=== PATIENT | male | born 1975 | race Caucasian/White ===

== ENCOUNTER 2019-01-23 08:31 | Inpatient (IN) | payer BC, MEDICAID ==
[~2019-01-23 08:31] MED LIST: Dexamethasone 4 MG/ML SDV ONE; Glycopyrrolate 0.2 MG/ML 5 ML MDV ONE; Ketamine 50 MG in Sodium Chloride 0.9% 49.5 ML IV SCH; Ketamine 500 MG/5 ML MDV IV SCH; Lactated Ringers 1,000 ML ONE; Lidocaine 0.4%/D5W 2 GM/500 ML BAG IV SCH; Lidocaine 2% 100 MG/5 ML Syringe IVPUSH SCH; Neostigmine Methylsulfate 1 MG/ML 5 ML Syringe ONE; Ondansetron 4 MG/2 ML SDV ONE; Propofol 200 MG/20 ML SDV ONE; Rocuronium 50 MG/5 ML Vial ONE; Ropivacaine 60 ML, Dexamethasone 8 MG, EPINEPHrine 0.4 MG, Sodium Chloride 0.9% 17.6 ML NERVRT SCH; Succinylcholine 200 MG/10 ML MDV ONE; cefOXitin 2 GM Vial ONE; fentaNYL 250 MCG/5 ML SDV ONE
[2019-01-23] MEDS ORDERED: Acetaminophen 500 MG Tab PO ONE (09:00)
[2019-01-23] MEDS ORDERED: Gabapentin 300 MG Cap PO ONE (09:00)
[2019-01-23] MEDS ORDERED: Scopolamine 1.5 MG Transdermal Patch TOP SCH (09:00)
[2019-01-23] MEDS ORDERED: cefOXitin 2 GM in Sodium Chloride 0.9% 50 ML IV ONE (09:00)
[2019-01-23] MEDS ORDERED: Dextrose 5%-Lactated Ringers 1,000 ML IV SCH ×2 (09:00→16:00)
[2019-01-23] MEDS ORDERED: Celecoxib 200 MG Cap PO ONE (09:00)
[2019-01-23 09:15] LABS: HEMOGLOBIN A1C 6.4 % (4.5-6.2)
[2019-01-23] MEDS ORDERED: Rocuronium 50 MG/5 ML Vial ONE ×2 (10:34→11:43)
[2019-01-23] MEDS ORDERED: fentaNYL 250 MCG/5 ML SDV ONE (11:00)
[2019-01-23] MEDS ORDERED: Sodium Chloride 0.9% 10 ML ONE (13:57)
[2019-01-23] MEDS ORDERED: fentaNYL 100 MCG/2 ML SDV ONE (14:03)
[2019-01-23] MEDS ORDERED: hydrOXYzine HCl 100 MG/2 ML SDV IM ONE (14:23)
[2019-01-23] MEDS ORDERED: fentaNYL 100 MCG/2 ML SDV IVPUSH ONE ×2 (14:41→14:58)
[2019-01-23] MEDS ORDERED: hydrOXYzine HCl 100 MG/2 ML SDV IM PRN (15:55)
[2019-01-23] MEDS ORDERED: Labetalol 20 MG/4 ML Syringe IVPUSH PRN (15:55)
[2019-01-23] MEDS ORDERED: diphenhydrAMINE 50 MG/ML SDV IVPUSH PRN (15:55)
[2019-01-23] MEDS ORDERED: Metoclopramide 10 MG/2 ML SDV IVPUSH PRN (15:55)
[2019-01-23] MEDS ORDERED: SCOPOLAMINE PATCH CHECK TOP SCH (15:55)
[2019-01-23] MEDS ORDERED: Ondansetron 4 MG/2 ML SDV IVPUSH PRN (15:55)
[2019-01-23] MEDS ORDERED: HYDROmorphone 1 MG/ML Syringe IV PRN (15:55)
[2019-01-23] MEDS ORDERED: Insulin Lispro 100 Unit/ML 3 ML KwikPen SUBCUT PRN (15:58)
[2019-01-23] MEDS ORDERED: 50% Dextrose in Water 50 ML Syringe IVPUSH PRN (15:58)
[2019-01-23] MEDS ORDERED: Glucagon,Human Recombinant 1 MG Vial IM PRN (15:58)
[2019-01-23] MEDS ORDERED: Lactated Ringers 1,000 ML IV SCH (16:00)
[2019-01-23] MEDS ORDERED: Pantoprazole 40 MG Vial IVPUSH SCH (17:00)
[2019-01-23] MEDS: cefOXitin 2 GM in Sodium Chloride 0.9% 50 ML IV SCH ×2 (17:43→23:00)
[2019-01-23] MEDS: Acetaminophen Soln 650 MG/20.3 ML UD Cup PO SCH ×2 (17:43→23:00)
[2019-01-23] MEDS ORDERED: Heparin Sodium 5,000 Units/ML Vial SUBCUT SCH (20:00)
[2019-01-23] MEDS: MVI, Adult with Vitamin K 10 ML, Thiamine 200 MG, Chromium/Copper/Mang/Selen/Zn 1 ML in... IV SCH ×4 (20:18)
[2019-01-23] MEDS: Gabapentin 250 MG/5 ML Solution ML 470 ML Bottle PO SCH (21:57)
[2019-01-23] MEDS: Metoprolol Succinate 25 MG Tab.ER PO SCH (21:57)
[2019-01-23] MEDS: HYDROmorphone 0.5 MG/0.5 ML Syringe IVPUSH PRN (23:17)
[2019-01-24] MEDS: Acetaminophen Soln 650 MG/20.3 ML UD Cup PO SCH ×4 (04:07→22:29)
[2019-01-24] MEDS: cefOXitin 2 GM in Sodium Chloride 0.9% 50 ML IV SCH ×4 (04:07→22:29)
[2019-01-24] MEDS ORDERED: Iohexol 647 MG/ML 50 ML SDV PO SCH (04:30)
--- NOTE | 2019-01-24 05:23 | CRLCR ---
HISTORY: David-en-Y gastric bypass. TECHNIQUE: Upright abdominal radiographs. Three images. Contrast material was administered. COMPARISON: No prior. FINDINGS: Postsurgical changes of gastric bypass. Contrast is seen extending from the gastric pouch into the proximal jejunum. No obstruction seen on these films. No contrast extravasation appreciated. Surgical drains are present. IMPRESSION: 1. Postsurgical changes of gastric bypass. 2. No obstruction or contrast extravasation seen on these views. Dictated by Anuj Richardson MD @ 01/24/2019 5:21:15 AM Dictated by: Anuj Richardson MD @ 01/24/2019 05:21:23 (Electronically Signed)
[2019-01-24] MEDS: Lactated Ringers 1,000 ML IV SCH (06:19)
[2019-01-24] MEDS: Celecoxib 200 MG Cap PO SCH (07:20)
[2019-01-24] MEDS ORDERED: traMADol 50 MG Tab PO PRN (08:01)
[2019-01-24] MEDS: Gabapentin 250 MG/5 ML Solution ML 470 ML Bottle PO SCH ×3 (09:00→20:15)
[2019-01-24] MEDS: Heparin Sodium 5,000 Units/ML Vial SUBCUT SCH ×2 (09:15→20:15)
[2019-01-24] MEDS: Hydrochlorothiazide 25 MG Tab PO SCH (09:16)
[2019-01-24] MEDS: Lisinopril 20 MG Tab PO SCH (09:17)
[2019-01-24] MEDS: Magnesium Sulfate/Water 2 GM in Premix Bag 1 BAG IV SCH ×3 (09:18→20:15)
[2019-01-24] MEDS: HYDROmorphone 0.5 MG/0.5 ML Syringe IVPUSH PRN ×2 (13:37→20:16)
[2019-01-24] MEDS: Pantoprazole 40 MG Delayed-Release Granules 1 Packet PO SCH (16:06)
[2019-01-24] MEDS: MVI, Adult with Vitamin K 10 ML, Thiamine 200 MG, Chromium/Copper/Mang/Selen/Zn 1 ML in... IV SCH ×4 (16:06)
[2019-01-24] MEDS: Metoprolol Succinate 25 MG Tab.ER PO SCH (20:15)
[2019-01-25] MEDS: Magnesium Sulfate/Water 2 GM in Premix Bag 1 BAG IV SCH ×4 (03:44→20:53)
[2019-01-25] MEDS: HYDROmorphone 0.5 MG/0.5 ML Syringe IVPUSH PRN ×2 (03:44→15:21)
[2019-01-25] MEDS: Lactated Ringers 1,000 ML IV SCH (03:44)
[2019-01-25] MEDS: Acetaminophen Soln 650 MG/20.3 ML UD Cup PO SCH ×4 (04:12→22:59)
[2019-01-25] MEDS: Celecoxib 200 MG Cap PO SCH (07:46)
[2019-01-25] MEDS: Hydrochlorothiazide 25 MG Tab PO SCH (08:34)
[2019-01-25] MEDS: Gabapentin 250 MG/5 ML Solution ML 470 ML Bottle PO SCH ×3 (08:34→21:01)
[2019-01-25] MEDS: Heparin Sodium 5,000 Units/ML Vial SUBCUT SCH ×2 (08:34→21:01)
[2019-01-25] MEDS: Lisinopril 20 MG Tab PO SCH (08:35)
[2019-01-25] MEDS ORDERED: Cyanocobalamin (Vitamin B12) 1,000 MCG/ML SDV IM ONE (09:00)
[2019-01-25] MEDS: MVI, Adult with Vitamin K 10 ML, Thiamine 200 MG, Chromium/Copper/Mang/Selen/Zn 1 ML in... IV SCH ×4 (15:01)
[2019-01-25] MEDS: Pantoprazole 40 MG Delayed-Release Granules 1 Packet PO SCH (17:21)
[2019-01-25] MEDS: Metoprolol Succinate 25 MG Tab.ER PO SCH (20:54)
[2019-01-26] MEDS: Lactated Ringers 1,000 ML IV SCH (01:03)
[2019-01-26] MEDS: Magnesium Sulfate/Water 2 GM in Premix Bag 1 BAG IV SCH ×2 (02:28→08:38)
[2019-01-26] MEDS: Acetaminophen Soln 650 MG/20.3 ML UD Cup PO SCH ×2 (04:33→10:57)
[2019-01-26] MEDS: HYDROmorphone 0.5 MG/0.5 ML Syringe IVPUSH PRN (04:42)
[2019-01-26] MEDS: Heparin Sodium 5,000 Units/ML Vial SUBCUT SCH (08:34)
[2019-01-26] MEDS: Celecoxib 200 MG Cap PO SCH (08:35)
[2019-01-26] MEDS: Hydrochlorothiazide 25 MG Tab PO SCH (08:35)
--- NOTE | 2019-01-26 08:35 | PN ---
DATE OF SERVICE: 01/24/2019 The patient is postop day 1 from a laparoscopic duodenal switch. He had a little bloody drainage from the KRAIG drain yesterday. This probably is related to the area where there is some mesenteric tearing. Clinically, he looks good, and the upper GI x-ray looks very satisfactory as well. The blood pressure is running a little bit high. We will restart his hydrochlorothiazide, metoprolol, and lisinopril today, go up to a step-2 diet without solids, and then restart some of his other pertinent oral medications and maximize activity and work with pulmonary toilet. I think the blood we are getting is probably related to the area of some tearing of the mesentery where there are some clots. At this point, I think we will restart him back on some subcu heparin, as his overall size and body habitus would make him a high risk for DVT. Fercho Isaac MD /[id number]
[2019-01-26] MEDS: Lisinopril 20 MG Tab PO SCH (08:36)
[2019-01-26] MEDS: Gabapentin 250 MG/5 ML Solution ML 470 ML Bottle PO SCH (08:41)
--- NOTE | 2019-01-26 09:26 | DISCH ---
ADMISSION DIAGNOSES: 1. Morbid obesity. 2. Body mass index 58. 3. Hypertension. 4. Diabetes type 2. 5. Obstructive sleep apnea. 6. Gastroesophageal reflux disease. 7. Chronic back pain. DISCHARGE DIAGNOSES: Laparoscopic duodenal switch, liver biopsy, repair of diaphragmatic hernia, mediastinal lipoma for morbid obesity, hepatomegaly, diaphragmatic hernia, and mediastinal lipoma. Date of surgery: 01/23/2019. Surgeon: Fercho Isaac MD. HISTORY: Fred Gutierrez is a 43-year-old male with longstanding history of morbid obesity and increasing comorbidities. After preoperative evaluation and discussion of possible risks and possible complications, he wished to proceed with surgical procedure. HOSPITAL COURSE: Fred had his surgery on 01/23/2019. He had no operative complications. On postoperative day #1, he was changed to step 2 gastric bypass diet with no cereal after his upper GI was normal. His blood sugars continued to decrease. He was started on no blood pressure medication. His appropriate hypertension medications were resumed. On postoperative day #2, he was able to shower. He was given three med cups to work on his oral intake and blood sugars remained to improve. On postoperative day #3, he was able to be discharged to home, vital signs stable, activity good, oral intake adequate, and he received adequate nutrition education. PHYSICAL EXAMINATION: GENERAL: Fred Gutierrez is a pleasant 43-year-old male. VITAL SIGNS: Height is 6 feet 2 inches, weight is 456 pounds, BMI is 58.5. TPR 96.1, 72, 20, blood pressure is 119/60. HEENT: Negative. NECK: Supple. HEART: Regular rate and rhythm. LUNGS: Clear. ABDOMEN: Incisions healing well. Sutures intact. 4x4s over 2 KRAIG drain sites. Abdominal binder has been on. EXTREMITIES: Without peripheral edema. DISPOSITION: Discharged to home. CONDITION: Stable and improving. FOLLOWUP APPOINTMENT: Oanh Jean PA-C, on 02/02/2019 at 10:00 a.m. HOME MEDICATIONS: Celebrex 200 mg p.o. daily, Tylenol 650 mg q.6 hours p.r.n. pain, aspirin 81 mg tablet chewable daily, hydrochlorothiazide/Microzide 50 mg p.o. daily, metoprolol 25 mg at bedtime, omeprazole 20 mg tablets daily, tramadol 50 mg p.o. t.i.d. p.r.n. pain. DIET: Step 2 gastric bypass diet with no cereal for one month until 02/23/2019. Drink 8 to 10 glasses of water a day. ACTIVITY: No lifting greater than 10 pounds for 2 weeks. Walk 6 times daily inside your home. Driving: Do not drive for 2 weeks. Shower/Bathing: May shower. Wound incision care, keep operative site clean and dry. Wear abdominal binder for 2 weeks and then as tolerated. Notify provider if any fever, increased pain, nausea, or vomiting. SPECIAL INSTRUCTIONS: Use incentive spirometer 10 times every hour while awake for 1 week. Check blood sugars 4 times a day, record results, and bring to clinic appointments.
--- NOTE | 2019-01-28 15:44 | OR ---
DATE OF PROCEDURE: 01/23/2019 PREOPERATIVE DIAGNOSIS: Morbid obesity. POSTOPERATIVE DIAGNOSES: 1. Morbid obesity. 2. Marked hepatomegaly. 3. Paraesophageal diaphragmatic hernia. 4. Mediastinal lipoma. OPERATIVE PROCEDURES: 1. Laparoscopic duodenal switch (39920). 2. Chay-Cut needle liver biopsy (69357). 3. Repair of paraesophageal diaphragmatic hernia (88724). 4. Excision of mediastinal lipoma (86401). ANESTHESIA: General. TELEX OPERATOR: Oanh Jean PA-C. INDICATIONS FOR PROCEDURE: This is a 43-year-old with super-morbid obesity with a preoperative weight in the range of 470 pounds at the time of consultation and type 2 diabetes mellitus. The plan is to proceed with a laparoscopic duodenal switch. Potential risks of the procedure including bleeding, infection, injury to underlying viscera, leaks from GI tract staple lines, the possibility that the procedure may need to be staged due to immobility of the small bowel at the initial procedure, requiring us to stop at the sleeve gastrectomy phase, as well as the possibility of cardiopulmonary, septic, or hemorrhagic complications leading to were all discussed, and the patient wishes to proceed. DETAILS OF PROCEDURE: The patient was taken to the operating room and placed in a supine position. After general endotracheal anesthesia was induced, he was converted to a lithotomy position. Soliman catheter was inserted, and the abdomen was prepped and draped. At 18 cm inferior and 5 cm left of the midline, a transverse incision was made, and the peritoneal cavity entered under direct vision with an Optiview trocar. Eventually, six additional trocars were placed across the upper and mid abdomen. One additional trocar had to be placed lower as the patient needed to have his omentum divided to facilitate adequate mobility of the small bowel. After the trocars were placed, bilateral subcostal transversus abdominis plane blocks were then placed. The patient was noted to have marked hepatomegaly with liver being grossly fatty infiltrated. Chay-Cut needle biopsies were obtained from left lobe of liver. Minimal bleeding from the biopsy sites was controlled with electrocautery. At this point, the small bowel was then identified at the ileocecal valve and traced out 300 cm proximal to that. Suture was then placed at that location to help lamine that area. The omentum, as mentioned above, was quite thickened and this was then divided using Harmonic scalpel and more or less in the midline to facilitate less tension upon mobilization of the small bowel up toward the duodenum. Attention was then taken to the gastric phase of the procedure. The liver was retracted anteriorly. The patient was noted to have a moderate-sized paraesophageal diaphragmatic hernia. The peritoneum overlying this was incised and the hernia reduced. During the course of the dissection, a roughly ping-pong ball-sized mediastinal lipoma was encountered. This was excised as well to facilitate closure of the hernia. Hernia was then closed anteriorly with 0 Ethibond sutures reinforced with PTFE pledgets. The omentum was then divided away from the greater curvature of the stomach, beginning at the mid-greater curvature initially, going proximally to the highest and posterior short gastric vessels. The tissue along the posterior diaphragm was skeletonized to prevent a cul- de-sac of stomach being left in that location upon subsequent gastrectomy phase of the procedure. The omentum was then divided distally down to a point roughly 4 cm distal to the pyloric sphincter. At that point, the duodenum was encircled at that level 4 cm distal to the pyloric sphincter and divided with the JOANA coreas loads. The blood supply to the duodenum on both sides as well as staple lines appeared to be intact. At this point, the small bowel was then mobilized upward at the point of the suture, and sutures were then placed at the upper and lower aspects of the divided duodenum with a 3-0 Vicryl stitch to the adjacent small bowel at the site of the anastomosis. Enterotomy was then placed in the inferior aspect of the divided aspect of the duodenum, as well as the adjacent small bowel, and using a JOANA 30 mm coreas load, the initial firing for creating the duodenoileostomy was accomplished. This was then closed transversely after three stay sutures were placed at the common opening, allowing this to be elevated, and this common opening was then closed transversely with a JOANA purple load and that area was then reinforced with some fibrin sealant. The sleeve gastrectomy phase had previously been completed, beginning the resection 6 cm proximal to the pylorus with black loads and care taken to avoid overtightening of the area of the incisura angularis. Once that area had been passed, a 40-Icelandic chest tube was then placed orally by Anesthesia and positioned along the lesser curvature of the stomach. Remainder of the sleeve gastrectomy was accomplished with a combination of reinforced black and purple loads, after completion of the staple line, all appeared to be nicely intact. At this point, additional fibrin sealant had been placed along the gastrectomy staple line, focusing on the area of the esophagogastric junction. A leak test was accomplished with injection of air into the chest tube while the small bowel was being compressed somewhat distal to the anastomosis and air was noted to traverse across the anastomosis, but no leaks or bleeding problems were identified. At this point, the mesentery of the small bowel was thick enough that it seemed to preclude safe construction of the enteroenterostomy part of the procedure, and this could be then later done as a staged procedure if needed. Otherwise, two Fransisco-García drains were then placed through the left subcostal trocar sites, one along the side of the esophagogastric junction and up into the splenic fossa and the other over the duodenoileostomy. At that point, no further problems were noted. Trocars were removed. The peritoneal cavity deflated. The gastric sleeve specimen had been retrieved through the left lateral trocar site. The drains were sutured to the skin with some 4-0 Vicryl stitch, which was also used to close the skin. The patient was taken to the recovery room in a satisfactory condition. There were no evident complications. Physician environmental services assistant, Oanh Jean, played an essential role in assisting in this case, helping to position the patient, retract structures as needed, as well as suturing and cutting sutures when indicated. Her presence improved patient safety and decreased the operative time. Fercho Isaac MD /[id number]
--- NOTE | 2019-01-29 08:54 | PN ---
DATE OF SERVICE: 01/25/2019 The patient has been afebrile with stable vital signs. He is improving a little bit in how to maintain his adequate oral intake. He did around 600 mL yesterday. Blood sugars are running fairly adequately with the IV rate running at 100 mL an hour and then try to augment gradual increase in oral intake. He may or may not be ready for discharge home tomorrow. Fercho Isaac MD /[id number]
== END 2019-01-26 13:45 | disposition home or self-care (01) | DRG 403 ==
LOC: JP.SDSSCHI 08:31 → JP.SDS 08:31 → EDSTATUS 13:30 → JP.MS 15:15
PROVIDERS: ADMIT Surgery; ATTEND Surgery
PROC: 0DB64Z3 Excision of Stomach, Percutaneous Endoscopic Approach, Vertical (ICD-10-PCS; principal; 2019-01-23)
PROC: 0WBC4ZX Excision of Mediastinum, Percutaneous Endoscopic Approach, Diagnostic (ICD-10-PCS; 2019-01-23)
PROC: 0FB24ZX Excision of Left Lobe Liver, Percutaneous Endoscopic Approach, Diagnostic (ICD-10-PCS; 2019-01-23)
PROC: 0BQT4ZZ Repair Diaphragm, Percutaneous Endoscopic Approach (ICD-10-PCS; 2019-01-23)
PROC: 0D194ZB Bypass Duodenum to Ileum, Percutaneous Endoscopic Approach (ICD-10-PCS; 2019-01-23)
DX: E66.01 Morbid (severe) obesity due to excess calories (principal); Z68.44 Body mass index [BMI] 60.0-69.9, adult; K44.9 Diaphragmatic hernia without obstruction or gangrene; R16.0 Hepatomegaly, not elsewhere classified; K76.0 Fatty (change of) liver, not elsewhere classified; D17.4 Benign lipomatous neoplasm of intrathoracic organs; I10 Essential (primary) hypertension; G47.30 Sleep apnea, unspecified; E53.8 Deficiency of other specified B group vitamins; E11.9 Type 2 diabetes mellitus without complications; G47.33 Obstructive sleep apnea (adult) (pediatric); K21.9 Gastro-esophageal reflux disease without esophagitis; M54.9 Dorsalgia, unspecified; G89.29 Other chronic pain; E78.5 Hyperlipidemia, unspecified; Z79.84 Long term (current) use of oral hypoglycemic drugs; Z79.82 Long term (current) use of aspirin; M51.06 Intervertebral disc disorders with myelopathy, lumbar region; M51.16 Intervertebral disc disorders with radiculopathy, lumbar region; M48.061 Spinal stenosis, lumbar region without neurogenic claudication; M21.372 Foot drop, left foot
CPT/HCPCS: 36415; 51701; 74240; 82962; 83036; 83735; 84100; 86850; 86900; 86901; 88304; 88307; 88313; 88342; 94762; A9270-GY; C9113; J0171; J0330; J0694; J1100; J1170; J1644; J2001; J2405; J2704; J2710; J2795; J3010; J3410; J3411; J3420; J3475; J3490; J7042; J7050; J7120; Q9967